=== PATIENT | male | born 2000 | race Two or more races ===

== ENCOUNTER 2023-08-24 12:41 | Emergency (ER) | payer OTHER ==
[~2023-08-24] VITALS: Ht 170.2 cm; Wt 91.0 kg
[2023-08-24] MEDS ORDERED: cefTRIAXone SOD 1,000 MG VL IM ONE (13:00)
[2023-08-24] MEDS ORDERED: SODIUM CHLORIDE 0.9% 1,000 ML IV ONE (13:00)
[2023-08-24 13:53] LABS: Basophils # (auto) 0 10 ^3/uL (0-0.2); Basophils % (auto) 0.3 % (0.0-2.0); Eosinophils # (auto) 0 10 ^3/uL (0-0.8); Hematocrit 48.6 % (41.0-53.0); Hemoglobin 16.4 g/dL (13.5-17.5); Lymphocytes # (auto) 0.5 10 ^3/uL (0.4-5.4); Mean Corpuscular Hemoglobin 29.2 pg (28.0-32.0); Mean Corpuscular Hgb Conc. 33.7 g/dL (32.0-36.0); Mean Corpuscular Volume 86.8 fL (80.0-100.0); Monocytes # (auto) 0.7 10 ^3/uL (0-1.3); Monocytes % (auto) 12.2 % (0.0-12.0); Neutrophils # (auto) 4.5 10 ^3/uL (1.6-8.6); Neutrophils % (auto) 78.5 % (37.0-80.0); Nucleated Red Blood Cells % 0.2 %; White Blood Cell 5.7 10^3/uL (4.4-10.8)
[2023-08-24 13:57] VITALS: BP 125/85; PULSE 107; RESP 18; TEMP 99.4; O2SAT 95
[2023-08-24 14:03] LABS: Alanine Aminotransferase 14 U/L (7-40); Albumin 4.8 g/dL (3.2-4.8); Alkaline Phosphatase 93 U/L (46-116); Anion Gap 5 (5-15); Aspartate Aminotransferase 18 U/L (13-40); BUN/Creatinine Ratio 9.1 (10.0-20.0); Bilirubin, Total 0.8 mg/dL (0.2-1.0); Blood Urea Nitrogen 7 mg/dL (9-23); Calcium 9.4 mg/dL (8.7-10.4); Carbon Dioxide 27 mmol/L (20-30); Chloride 106 mmol/L (98-107); Glucose 79 mg/dL (74-106); Potassium 3.8 mmol/L (3.5-5.1); Sodium 138 mmol/L (136-145); Total Protein 7.8 g/dL (5.7-8.2)
[2023-08-24] MEDS ORDERED: TETANUS-DIPTH-ACEL PERTUSSIS 0.5ML SYR Tdap IM ONE (16:15)
== END 2023-08-24 16:30 | disposition home or self-care (01) ==
LOC: EDBD 12:41 → ER 12:41
DX: S09.90XA Unspecified injury of head, initial encounter (principal); X58.XXXA Exposure to other specified factors, initial encounter; Y93.89 Activity, other specified; Y92.89 Other specified places as the place of occurrence of the external cause; Y99.8 Other external cause status
CPT/HCPCS: 36415; 70450; 80053; 85025; 90471; 90715; 96360; 96361; 96372; 99285; J0696; J7030

== ENCOUNTER 2024-03-06 11:29 | Emergency (ER) | payer OTHER ==
[~2024-03-06] VITALS: Ht 170.2 cm; Wt 81.2 kg
[2024-03-06 14:43] VITALS: BP 134/78; PULSE 80; RESP 18; TEMP 98.3; O2SAT 98
[2024-03-06] MEDS: DexAMETHasone SOD PHOS 10MG/1ML VIAL INJ IM ONE (14:47)
[2024-03-06] MEDS: cefTRIAXone SOD 1,000 MG VL IM ONE (14:47)
[2024-03-06] MEDS ORDERED: CLIN1AER5 EX (15:22)
[2024-03-06] MEDS ORDERED: DOXY-286 PO (15:22)
[2024-03-06] MEDS ORDERED: METH4PAK PO (15:22)
== END 2024-03-06 15:27 | disposition home or self-care (01) ==
LOC: ER 11:29
DX: L73.9 Follicular disorder, unspecified (principal); Z79.899 Other long term (current) drug therapy
CPT/HCPCS: 96372; 99284; J0696; J1100